=== PATIENT | female | born 1945 | race Caucasian/White ===

== ENCOUNTER 2019-05-02 07:25 | Emergency (ER) | payer OTHER ==
[~2019-05-02] VITALS: Ht 157.5 cm; Wt 62.1 kg
[2019-05-02] MEDS ORDERED: SIMVASTATIN5 MG PO (07:44)
[2019-05-02] MEDS ORDERED: LIPITOR40 MG PO (07:44)
== END 2019-05-02 13:03 | disposition home or self-care (01) ==
LOC: ER 07:25
DX: J06.9 Acute upper respiratory infection, unspecified (principal); B34.9 Viral infection, unspecified